=== PATIENT | male | born 1985 ===

== ENCOUNTER 2019-02-09 14:48 | Emergency (ER) | payer SELFPAY ==
--- NOTE | 2019-02-09 15:18 | RAD ---
Exam: XR Hand Rt 3 View STANDARD HISTORY: Injury to right hand. Right thumb pain with pain rating of right arm after injury. COMPARISON: None FINDINGS: No acute fracture, dislocation, or other acute osseous abnormality is identified. IMPRESSION: No acute osseous abnormality is identified.
== END 2019-02-09 14:55 | disposition home or self-care (01) ==
LOC: ERS 14:48
DX: S63.641A Sprain of metacarpophalangeal joint of right thumb, initial encounter (principal); X50.9XXA Other and unspecified overexertion or strenuous movements or postures, initial encounter